=== PATIENT | female | born 1995 | race Caucasian/White ===

== ENCOUNTER 2017-12-14 13:55 | Emergency (ER) | payer SELFPAY ==
[2017-12-14] MEDS ORDERED: PHENAZOPYRIDINE HCL 200 MG TAB PO ONE (14:07)
[2017-12-14 14:11] VITALS: BP 105/74; PULSE 84; RESP 14; TEMP 98.2; O2SAT 97
--- NOTE | 2017-12-14 15:15 | EDPHY ---
H & P Time Seen by Provider: 12/14/17 14:26 HPI/ROS: 22-year-old female presents complaining urinary urgency and frequency that began this morning. No fevers or chills, no back pain no nausea vomiting diarrhea. Review of systems As per HPI General no fever no chills no weakness HEENT no eye pain no eye discharge. No eye redness, no sore throat Respiratory no cough, no shortness of breath Cardiac no chest pain, no peripheral edema GI no abdominal pain, no diarrhea, no constipation, no nausea, no vomiting no flank pain, no hematuria, positive dysuria Musculoskeletal no myalgias, no joint pain Heme no easy bruising, no easy bleeding Endo no polyuria, no polydipsia Skin no rashes, no pruritus Neuro no syncope, no dizziness, no headaches Psych is no suicidal ideation, no homicidal ideation Past Medical/Surgical History: Urinary tract infection Social History: Denies alcohol or drug use Smoking Status: Former smoker Physical Exam: [age] Female alert and oriented in no acute distress nontoxic appearance, afebrile Atraumatic normocephalic Neck supple Lungs clear to auscultation bilaterally Heart regular rate and rhythm Abdomen normoactive bowel sounds soft mild suprapubic tenderness no guarding no rebound Back no CVA tenderness Extremities no cyanosis clubbing or edema Skin no rash Constitutional: Initial Vital Signs Temperature (C) 36.8 C 12/14/17 14:08 Heart Rate 84 12/14/17 14:08 Respiratory Rate 14 12/14/17 14:08 Blood Pressure 105/74 12/14/17 14:08 O2 Sat (%) 97 12/14/17 14:08 O2 Delivery Mode Room Air Allergies/Adverse Reactions: Penicillins Allergy (Verified 12/14/17 14:05) Home Medications: Medication Instructions Recorded Cephalexin 500 mg PO TID #21 tablet 12/14/17 Phenazopyridine HCl 200 mg PO TID #6 tab 12/14/17 [Phenazopyridine] Medical Decision Making ED Course/Re-evaluation: Patient seen and evaluated for dysuria. UA positive for WBCs, RBCs, leuk esterase, nitrate, bacteria Impression Urinary tract infection Plan Cephalexin Phenazopyridine PCP Differential Diagnosis: Urinary tract infection, vaginitis, pyelonephritis - Data Points Laboratory Results: 12/14/17 14:25 Urine Color YELLOW Urine Appearance CLOUDY Urine pH 6.0 (5.0-7.5) Ur Specific [place] 1.015 (1.002-1.030) Urine Protein 1+ H (NEGATIVE) Urine Ketones NEGATIVE (NEGATIVE) Urine Blood 3+ H (NEGATIVE) Urine Nitrate NEGATIVE (NEGATIVE) Urine Bilirubin NEGATIVE (NEGATIVE) Urine Urobilinogen 0.2 EU EU (0.2-1.0) Ur Leukocyte Esterase NEGATIVE (NEGATIVE) Urine RBC >182 /hpf H /hpf (0-3) Urine WBC 5-10 /hpf H /hpf (0-3) Ur Epithelial Cells 1+ /lpf /lpf (NONE-1+) Ur Renal Epithelial Cell OCCASIONAL /hpf H /hpf (NONE SEEN) Urine Bacteria TRACE /hpf H /hpf (NONE SEEN) Urine Mucus TRACE /lpf /lpf (NONE-1+) Urine Glucose NEGATIVE (NEGATIVE) Medications Given: Discontinued Medications Phenazopyridine HCl (Pyridium) 200 mg PO EDNOW ONE Stop: 12/14/17 14:08 Last Admin: 12/14/17 14:13 Dose: 200 mg Departure - Departure Disposition: Home, Routine, Self-Care Clinical Impression: Urinary tract infection Condition: Good Instructions: Urinary Tract Infection in Women (ED) Referrals: Geronimo JAMES [Primary Care Provider] - As per Instructions Prescriptions: Cephalexin 500 mg PO TID #21 tablet Phenazopyridine HCl [Phenazopyridine] 200 mg PO TID #6 tab
== END 2017-12-14 15:21 | disposition home or self-care (01) ==
LOC: CED 13:55
DX: N39.0 Urinary tract infection, site not specified (principal); B96.89 Other specified bacterial agents as the cause of diseases classified elsewhere; Z87.891 Personal history of nicotine dependence
CPT/HCPCS: 81003-PO; 81015-PO

== ENCOUNTER 2018-10-27 18:00 | Emergency (ER) | payer MEDICAID ==
[2018-10-27 18:18] VITALS: BP 108/72
[2018-10-27] MEDS ORDERED: CEPHALEXIN 500 MG CAP PO ONE (18:24)
--- NOTE | 2018-10-27 18:32 | EDPHY ---
H & P Stated Complaint: r flank pain, body aches and fever x 3 days Time Seen by Provider: 10/27/18 18:24 HPI/ROS: CHIEF COMPLAINT: Right flank pain and urinary frequency HISTORY OF PRESENT ILLNESS: The patient is a 23-year-old female who comes to the emergency department complaining of right flank discomfort, urinary frequency and concentrated urine. No dysuria. No rash. No abdominal pain. No nausea vomiting or diarrhea. She denies risk of . No vaginal symptoms. Severity: Moderate Modifying factors: None REVIEW OF SYSTEMS: Constitutional: denies: chills, fever, recent illness, recent injury EENTM: denies: blurred vision, double vision, nose congestion Respiratory: denies: cough, shortness of breath Cardiac: denies: chest pain, irregular heart rate, lightheadedness, palpitations Gastrointestinal/Abdominal: denies: abdominal pain, diarrhea, nausea, vomiting, blood streaked stools Genitourinary: See HPI Musculoskeletal: denies: joint pain, muscle pain Skin: denies: lesions, rash, jaundice, bruising Neurological: denies: headache, numbness, paresthesia, tingling, dizziness, weakness Hematologic/Lymphatic: denies: blood clots, easy bleeding, easy bruising Immunologic/allergic: denies: HIV/AIDS, transplant 10 systems reviewed and negative except as noted EXAM: GENERAL: Well-appearing, well-nourished and in no acute distress. HEAD: Atraumatic, normocephalic. EYES: Pupils equal round and reactive to light, extraocular movements intact, sclera anicteric, conjunctiva are normal. ENT: TMs normal, nares patent, oropharynx clear without exudates. Moist mucous membranes. NECK: Normal range of motion, supple without lymphadenopathy or JVD. LUNGS: Breath sounds clear to auscultation bilaterally and equal. No wheezes rales or rhonchi. HEART: Regular rate and rhythm without murmurs, rubs or gallops. ABDOMEN: Soft, nontender, normoactive bowel sounds. No guarding, no rebound. No masses appreciated. BACK: No CVA tenderness, no spinal tenderness, step-offs or deformities EXTREMITIES: Normal range of motion, no pitting or edema. No clubbing or cyanosis. NEUROLOGICAL: Cranial nerves II through XII grossly intact. Normal speech, normal gait. 5/5 strength, normal movement in all extremities, normal sensation , normal reflexes PSYCH: Normal mood, normal affect. SKIN: Warm, dry, normal turgor, no visible rashes or lesions. Source: Patient Exam Limitations: No limitations - Personal History LMP (Females 10-55): 8-14 Days Ago Current Tetanus Diphtheria and Acellular Pertussis (TDAP): Yes Tetanus Vaccine Date: 2014 - Medical/Surgical History Hx Asthma: No Hx Chronic Respiratory Disease: No Hx Diabetes: No Hx Cardiac Disease: No Hx Renal Disease: No Hx Cirrhosis: No Hx Alcoholism: No Hx HIV/AIDS: No Hx Splenectomy or Spleen Trauma: No Other PMH: denies - Family History Significant Family History: No pertinent family hx - Social History Smoking Status: Former smoker Alcohol Use: Sober Drug Use: None Constitutional: Initial Vital Signs Temperature (C) 37.0 C 10/27/18 18:16 Heart Rate 88 10/27/18 18:16 Respiratory Rate 18 10/27/18 18:16 Blood Pressure 108/72 10/27/18 18:16 O2 Sat (%) 97 10/27/18 18:16 O2 Delivery Mode Room Air Allergies/Adverse Reactions: Penicillins Allergy (Verified 10/27/18 18:16) Home Medications: Medication Instructions Recorded Cephalexin [Keflex] 500 mg PO TID #21 cap 10/27/18 Medical Decision Making ED Course/Re-evaluation: The patient has symptoms consistent with a urinary tract infection. Her urinalysis is positive for leuk esterase. Her abdominal exam is benign. We discussed options. I will start her on Keflex and have her follow up in 24-48 hours especially for symptoms are not improving. We also discussed indications for returning sooner. Differential Diagnosis: Partial list of the Differential diagnosis considered include but were not limited to; urinary tract infection, pyelonephritis and although unlikely based on the history and physical exam, I also considered kidney stone, appendicitis, obstruction, , ovarian cyst. I discussed these differential diagnoses and the plan with the patient as well as the usual and expected course. The patient understands that the diagnosis is provisional and that in medicine we are not always correct and that further workup is often warranted. Usual and customary warnings were given. All of the patient's questions were answered. The patient was instructed to return to the emergency department should the symptoms at all worsen or return, otherwise to followup with the physician as we discussed. - Data Points Medications Given: Discontinued Medications Cephalexin HCl (Keflex) 500 mg PO EDNOW ONE PRN Reason: Protocol Stop: 10/27/18 18:25 Last Admin: 10/27/18 18:46 Dose: 500 mg Point of Care Test Results: Urine Dip Collection Date 10/27/18 Collection Time 08:15 Specific [place] (1.002-1.030) 1.005 PH (5.0-7.5) 6.5 Leukocytes (Negative) 1+ Nitrites (Negative) Negative Protein (Negative) Negative Glucose (Negative) Negative Ketones (Negative) Negative Urobilnogen (0.2-1.0 EU) 0.2 Bilirubin (Negative) Negative Blood (Negative) Negative Departure - Departure Disposition: Home, Routine, Self-Care Clinical Impression: Urinary tract infection Qualifiers: Urinary tract infection type: site unspecified Hematuria presence: without hematuria Qualified Code(s): N39.0 - Urinary tract infection, site not specified Condition: Fair Instructions: Urinary Tract Infection in Women (ED) Referrals: IRENE MCNEILL [Primary Care Provider] - 1 day, if not improved Prescriptions: Cephalexin [Keflex] 500 mg PO TID #21 cap
== END 2018-10-27 18:49 | disposition home or self-care (01) ==
LOC: CED 18:00
DX: N39.0 Urinary tract infection, site not specified (principal)